=== PATIENT | male | born 1980 | race Caucasian/White ===

== ENCOUNTER 2017-11-07 09:30 | Emergency (ER) | payer OTHER ==
[2017-11-07] MEDS ORDERED: Sodium Chloride 0.9% 10 ML Syringe FLUSH PRN (09:43)
[2017-11-07] MEDS ORDERED: Iopamidol 612 MG/ML 75 ML Bottle IVPUSH ONE (09:44)
[2017-11-07 10:15] LABS: CHLORIDE,CL 105 mmol/L (101-111); SODIUM,NA 138 mmol/L (135-145)
[2017-11-07] MEDS ORDERED: Ketorolac 30 MG/ML SDV IVPUSH ONE (11:01)
--- NOTE | 2017-11-07 11:14 | EDM.PDOC ---
"Scribed by Yumiko Aguilar 11/07/17 [facility] Jovanna Montejo MD ED HPI GENERAL MEDICAL PROBLEM - General Chief Complaint: Abdominal Pain Stated Complaint: LOWER RT ABDOMEN Time Seen by Provider: 11/07/17 09:36 Source of Information: Reports: Patient, RN, RN Notes Reviewed History Limitations: Reports: No Limitations - History of Present Illness INITIAL COMMENTS - FREE TEXT/NARRATIVE: Patient presents to ER with complaint of onset of right lower quadrant pain this morning. Patient states that he first began to feel this pain approximately a week ago, after doing sit ups in a PT evaluation. Patient is from [facility], where he is participating in [employer]. He was unable to complete PT evaluation due to the pain. Denies fever, chills, nausea, vomiting, diarrhea, constipation or urinary symptoms. Onset: Today Duration: Getting Worse Location: Reports: Abdomen Quality: Reports: Ache Severity: Moderate Improves with: Reports: None Worsens with: Reports: None Associated Symptoms: Reports: No Other Symptoms Right Lower Abdomen Pain Score (Numeric/FACES): 2 - Related Data Allergies Allergy/AdvReac Type Severity Reaction Status Date / Time bee venom protein (honey bee) Allergy Swelling Verified 11/07/17 09:36 Home Meds: Home Meds . [No Known Home Meds] 11/07/17 [History] ED ROS GENERAL - Review of Systems Review Of Systems: ROS reveals no pertinent complaints other than HPI. ED EXAM, GI/ABD - Physical Exam Exam: See Below Exam Limited By: No Limitations General Appearance: Alert, WD/WN, No Apparent Distress Head: Atraumatic, Normocephalic Neck: Normal Inspection Respiratory/Chest: No Respiratory Distress, Lungs Clear, Normal Breath Sounds, No Accessory Muscle Use, Chest Non-Tender Cardiovascular: Regular Rate, Rhythm, No Murmur GI/Abdominal Exam: Normal Bowel Sounds, Soft, No Organomegaly, No Distention, No Abnormal Bruit, No Mass, Tender (right lower quadrant). No: Guarding, Rigid , Rebound (Male) Exam: Deferred Rectal (Males) Exam: Deferred Extremities: Normal Inspection Neurological: Alert, Oriented, Normal Cognition, Normal Gait, No Motor/Sensory Deficits Psychiatric: Normal Mood Skin Exam: Warm, Dry, Intact, Normal Color, No Rash Course - Vital Signs Last Recorded V/S: Last Vital Signs Temp 36.3 C 11/07/17 09:33 Pulse 87 11/07/17 09:33 Resp 18 11/07/17 09:33 BP 126/85 11/07/17 09:33 Pulse Ox 98 11/07/17 09:33 - Orders/Labs/Meds Orders: Active Orders 24 hr Category Date Time Status Peripheral IV Care [RC] . DIRECTED Care 11/07/17 09:44 Active Abdomen Pelvis w Cont [CT] Stat Exams 11/07/17 09:43 Taken UA W/MICROSCOPIC [URIN] Stat Lab 11/07/17 10:04 Ordered Sodium Chloride 0.9% [Saline Flush] Med 11/07/17 09:43 Active 10 ml FLUSH ASDIRECTED PRN Peripheral IV Insertion Adult [OM.PC] Stat Oth 11/07/17 09:43 Ordered Medication Orders Sodium Chloride (Saline Flush) 10 ml FLUSH ASDIRECTED PRN PRN Reason: Keep Vein Open Last Admin: 11/07/17 09:46 Dose: 10 ml Labs: Laboratory Tests 11/07/17 11/07/17 11/07/17 Range/Units 09:45 09:45 10:04 WBC 9.2 (5.0-10.0) 10^3/uL RBC 5.09 (4.6-6.2) 10^6/uL Hgb 14.7 (14.0-18.0) g/dL Hct 45.1 (40.0-54.0) % MCV 88.6 (80-100) fL MCH 28.9 (27.0-34.0) pg MCHC 32.6 L (33.0-35.0) g/dL Plt Count 283 (150-450) 10^3/uL Neut % (Auto) 64.3 (42.2-75.2) % Lymph % (Auto) 26.3 (20.5-50.1) % [place] % (Auto) 6.8 (2-8) % Eos % (Auto) 2.2 (1.0-3.0) % Baso % (Auto) 0.4 (0.0-1.0) % Sodium 138 (135-145) mmol/L Potassium 4.0 (3.6-5.0) mmol/L Chloride 105 (101-111) mmol/L Carbon Dioxide 26.0 (21.0-31.0) mmol/L Anion Gap 11.0 BUN 18 (7-18) mg/dL Creatinine 1.1 (0.6-1.3) mg/dL Est Cr Clr Drug Dosing 81.36 mL/min Estimated GFR (MDRD) > 60 BUN/Creatinine Ratio 16.36 Glucose 85 (74-105) mg/dL Calcium 9.1 (8.4-10.2) mg/dl Total Bilirubin 0.8 (0.2-1.0) mg/dL AST 25 (10-42) IU/L ALT 27 (10-60) IU/L Alkaline Phosphatase 61 (42-121) IU/L Total Protein 7.5 (6.7-8.2) g/dl Albumin 4.6 (3.2-5.5) g/dl Globulin 2.9 Albumin/Globulin Ratio 1.59 Urine Color Yellow (YELLOW) Urine Appearance Slightly cloudy (CLEAR) Urine pH 5.5 (5.0-9.0) Ur Specific [place] >= 1.030 (1.005-1.030) Urine Protein Negative (NEGATIVE) Urine Glucose (UA) Negative (NEGATIVE) Urine Ketones Trace H (NEGATIVE) Urine Occult Blood Negative (NEGATIVE) Urine Nitrite Negative (NEGATIVE) Urine Bilirubin Negative (NEGATIVE) Urine Urobilinogen 0.2 (0.2-1.0) mg/dL Ur Leukocyte Esterase Negative (NEGATIVE) Urine RBC 0-5 /HPF Urine WBC 0-5 (0-5/HPF) /HPF Ur Epithelial Cells Rare /HPF Urine Bacteria Few (0-FEW/HPF) /HPF Urine Mucus Many H /LPF Meds: Medications Generic Name Dose Route Start Last Admin Trade Name Frefranky PRN Reason Stop Dose Admin Sodium Chloride 10 ml 11/07/17 09:43 11/07/17 09:46 Saline Flush FLUSH 10 ml ASDIRECTED PRN Administration Keep Vein Open Discontinued Medications Generic Name Dose Route Start Last Admin Trade Name Freq PRN Reason Stop Dose Admin Iopamidol 75 ml 11/07/17 09:44 11/07/17 10:27 Isovue-300 (61%) IVPUSH 11/07/17 09:45 75 ml ONETIME ONE Administration Ketorolac Tromethamine 30 mg 11/07/17 11:01 11/07/17 11:07 Toradol IVPUSH 11/07/17 11:02 30 mg ONETIME ONE Administration - Radiology Interpretation Free Text/Narrative:: [facility] [place] [facility] Final Radiology Report Call: [phone] assistance Online chat: [email or web address] Name: YUE KOCH Age: 37Years M Date: 11/07/2017 SSN: -- : [id number] Study: CT ABDOMEN/PELVIS W Requesting Physician: JOVANNA CALHOUN Images: 235 Addl Studies: Provided Clinical History: Contrast: With Contrast Medium: Isovue Contrast Amount: 75 mL Contrast Method: IV Page 1 of 2 EXAM: CT Abdomen and Pelvis With Intravenous Contrast CLINICAL HISTORY: 37 years old, male; Right lower quadrant pain. TECHNIQUE: Axial computed tomography images of the abdomen and pelvis with intravenous contrast. All CT scans at this facility use at least one of these dose optimization techniques: automated exposure control; mA and/or kV adjustment per patient size (includes targeted exams where dose is matched to clinical indication); or iterative reconstruction. Coronal and sagittal reformatted images were created and reviewed. CONTRAST: 75 mL of Isovue administered intravenously. COMPARISON: No relevant prior studies available. FINDINGS: Lung bases: No acute basilar lung consolidation. ABDOMEN: Liver: The liver is homogeneous and is not enlarged. Gallbladder and bile ducts: No calcified gallstones, gallbladder wall thickening , or pericholecystic inflammation. No biliary ductal dilation. Pancreas: No pancreatic mass, inflammation, or ductal dilation. Spleen: The spleen is homogeneous and is not enlarged. Adrenals: No adrenal mass. YUE KOCH | Final Radiology Report CONFIDENTIALITY STATEMENT This report is intended only for use by the referring physician, and only in accordance with law. If you received this in error, call [phone]. Page 2 of 2 Kidneys and ureters: No hydronephrosis or nephrolithiasis. No hydroureter or ureterolithiasis. No renal mass. Stomach and bowel: No bowel obstruction or diverticulitis. PELVIS: Appendix: The appendix has a normal caliber with no wall thickening. No periappendiceal stranding. Bladder: The bladder is small in volume. There is concentric bladder wall thickening which can be due to lack of distention and/or cystitis. No bladder calculi. Reproductive: Unremarkable as visualized. ABDOMEN and PELVIS: Intraperitoneal space: No ascites or pneumoperitoneum. Bones/joints: No acute osseous abnormality. Soft tissues: There is a tiny umbilical hernia containing fat. Vasculature: No abdominal aortic aneurysm. No iliac or common femoral artery aneurysm. The mesenteric arteries are patent. The mesenteric, portal, and hepatic veins are patent. Lymph nodes: Small mesenteric lymph nodes are present, more prominently in the right lower quadrant. IMPRESSION: 1. Normal appendix. 2. Mesenteric lymph nodes most prominent in the right lower quadrant. 3. No urinary tract calculus or obstruction. Thank you for allowing us to participate in the care of your patient. Dictated and Authenticated by: Korey Hernandez MD 11/07/2017 10:59 AM Central Time Departure - Departure Time of Disposition: 11:08 Disposition: Home, Self-Care 01 Condition: Good Clinical Impression: Mesenteric lymphadenitis Abdominal pain Qualifiers: Abdominal location: right lower quadrant Qualified Code(s): R10.31 - Right lower quadrant pain - Discharge Information Instructions: Mesenteric Adenitis, Adult, Abdominal Pain, Adult, [id number] Forms: ED Department Discharge Additional Instructions: Continue over the counter Advil as needed for pain. See package label for dosing and precautions. Light activity as tolerated. Avoid running, sit ups, push ups, etc. for 7 days. Follow up in clinic if not improving as expected in 7 to 10 days. - My Orders Last 24 Hours: My Active Orders 11/07/17 09:43 Abdomen Pelvis w Cont [CT] Stat Sodium Chloride 0.9% [Saline Flush] 10 ml FLUSH ASDIRECTED PRN Peripheral IV Insertion Adult [OM.PC] Stat 11/07/17 09:44 Peripheral IV Care [RC] . DIRECTED 11/07/17 10:04 UA W/MICROSCOPIC [URIN] Stat - Assessment/Plan Last 24 Hours: My Active Orders 11/07/17 09:43 Abdomen Pelvis w Cont [CT] Stat Sodium Chloride 0.9% [Saline Flush] 10 ml FLUSH ASDIRECTED PRN Peripheral IV Insertion Adult [OM.PC] Stat 11/07/17 09:44 Peripheral IV Care [RC] . DIRECTED 11/07/17 10:04 UA W/MICROSCOPIC [URIN] Stat I have read and agree with the documentation that has been completed regarding this visit. By signing this record, I attest that the documentation was completed in my physical presence and is an accurate record of the encounter."
== END 2017-11-07 11:17 | disposition home or self-care (01) ==
LOC: DL.ED 09:30
DX: I88.0 Nonspecific mesenteric lymphadenitis (principal); Z91.030 Bee allergy status
CPT/HCPCS: 36415; 74177; 80053; 81001; 85025; 96374; 99284; J1885; J7050; Q9967; 99283